=== PATIENT | male | born 1950 | race Caucasian/White ===

== ENCOUNTER 2016-09-20 13:23 | Emergency (ER) | payer MEDICARE ==
[~2016-09-20] VITALS: Ht 175.3 cm; Wt 80.7 kg
[2016-09-20 13:24] VITALS: BP 183/87
[2016-09-20] MEDS ORDERED: GLIP5TAB8 PO (13:45)
[2016-09-20] MEDS ORDERED: FLUORESCEIN OPHTH 1 MG STRIP As Ordered ONE (14:02)
[2016-09-20] MEDS ORDERED: TETRACAINE 0.5% OPHTH SOLN 4ML OD ONE (15:00)
[2016-09-20] MEDS ORDERED: diazePAM 5 MG TAB PO ONE (15:30)
[2016-09-20 16:40] LABS: BASO # 0.1 K/mm3 (0.0-0.2); EOS # 0.4 K/mm3 (0.0-0.50); EOS % 3.6 % (0.0-3.0); LARGE UNSTAINED CELL # 0.2 K/mm3 (0.0-0.4); LARGE UNSTAINED CELL % 2.1 % (0.0-4.0); LYMPH # 2.8 K/mm3 (1.5-4.5); LYMPH % 26.2 % (24.0-44.0); MEAN CORPUSCULAR HEMOGLOBIN 29.5 pg (27.0-33.0); MEAN CORPUSCULAR HGB CONC 34.4 g/dl (32.0-36.5); MEAN CORPUSCULAR VOLUME 85.7 fl (80.0-96.0); MONO # 0.7 K/mm3 (0.0-0.8); MONO % 7.3 % (0.0-5.0); NEUTROPHILS # 5.8 K/mm3 (1.8-7.7); NEUTROPHILS % 59.8 % (36.0-66.0); PLATELET COUNT, AUTOMATED 211 k/mm3 (150-450); RED CELL DISTRIBUTION WIDTH 13.3 % (11.5-14.5); WHITE BLOOD COUNT 9.8 K/mm3 (4.0-10.0)
[2016-09-20 17:09] LABS: ALBUMIN 3.7 GM/DL (3.2-5.2); ALBUMIN/GLOBULIN RATIO 0.93 (1.00-1.93); BILIRUBIN,TOTAL 0.4 MG/DL (0.2-1.0); CALCIUM LEVEL 8.4 MG/DL (8.8-10.2); CREATININE FOR GFR 2.49 MG/DL (0.70-1.30); GLOMERULAR FILTRATION RATE 27.7 (>49); TOTAL PROTEIN 7.7 GM/DL (6.4-8.2)
[2016-09-20 17:31] LABS: ERYTHROCYTE SEDIMENTATION RATE 56 mm/hr (0-20)
== END 2016-09-20 17:48 | disposition short-term general hospital (02) ==
LOC: M ED 14:34
DX: H15.001 Unspecified scleritis, right eye (principal); E11.9 Type 2 diabetes mellitus without complications; Z79.84 Long term (current) use of oral hypoglycemic drugs